=== PATIENT | female | born 1945 | race Caucasian/White ===

== ENCOUNTER → 2019-06-16 | Outpatient (CLI) | payer OTHER ==
[~2019-06-16] VITALS: Ht 157.5 cm; Wt 89.6 kg
[~2019-06-16] MED LIST: CARVEDILOL12.5 MG PO; CENTRUM TABLET1 TAB OR; CITRULLINE PO; CLONAZEPAM 1 MG1 M1 OR; COZAAR 25 MG TA25 M1 PO; FISHOIL OR; FLEXERIL PO; IBUPROFEN 200200 M1 PO; L-ARGININE1000 MG OR; LEXAPRO 10 MG T10 MG OR; LEXAPRO20 MG PO; LIPITOR 20 MG T20 M1 PO; LORTAB PO; NORCO 5-325 TA1 EACH PO; PHAZYME250 MG PO; PROAIR HFA8.5 GM INH; TRAMADOL 50 MG50 MG PO; TRELEGY ELLIPT1 EACH SPRAY; XANAX 0.25 MG0.25 MG PO; ZOLOFT50 M1 PO; [UNRECOGNIZED DRUG - OTHER] OR
[2019-06-16 13:23] VITALS: BP 220/93
--- NOTE | 2019-06-16 13:35 | NUR ---
Pain Clinic Assessment: 1. History of Osteoarthritis: BACK HANDS KNEES History of Rheumatoid Arthritis: Not Applicable 2. Height: 5 ft. 2 in. 157.5 cm. Weight: 197.6 lb. oz. 89.631 kg. Patient's BMI: 36.1 3. Vital Signs: BP: 220/93 Pulse: 77 Resp: 22 Temp: 02 Sat: 96 ECG Mon: 4. Pain Intensity: 7 5. Fall Risk: Dizziness: Y Needs help standing or walking: Y Fallen in the last 3 months: Y Fall risk comments: 6. Patient on Blood Thinner: None 7. History of Hypertension: Y 8. Opioid Therapy greater than 6 weeks: N Opiate Contract Signed: 9. Risk Assessment Tool Provided: LOW RISK 04/23 10. Functional Assessment Tool: 11. Recreational Drug Use: Never Drug Type: Tobacco Use: Never Smoker Tobacco Type: Amount or Packs/day: How Many Years: Alcohol Use: Yes Frequency: Weekly Quant: 1
--- NOTE | 2019-06-22 08:27 | HPC ---
[facility] [employer] [place] [address] PAIN MANAGEMENT CONSULTATION Name: JOANNA KOROMA Room #: REG DWAYNE Luna#: [id number] Admission: 06/16/19 Attend Phys: Meño Ward DO Discharge: Date of : 45 Report #: [id number] THIS REPORT FOR: cc: Meño Frey MD, James E. MD Johnson, James E. DO ~ DATE OF SERVICE: 06/16/2019 CHIEF COMPLAINT: Lumbar radiculopathy with neurogenic claudication. HISTORY OF PRESENT ILLNESS: As you know, the patient is a 74-year-old female who was seen in our clinic at [facility] on 06/10/2019 for suspected lumbar radiculopathy secondary to progressively worsening spinal stenosis. The patient was advised to trial conservative treatment options initially prior to considering surgical options. 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 She was made an appointment in our clinic at [facility] to undergo a lumbar epidural injection under fluoroscopic guidance. As you are aware, the patient has signs and symptoms of L5-S1 radiculopathy due to the findings of her MRI. This was confirmed by her neurosurgeon, Dr. Yusef Puri and by myself at our visit of 06/10/2019. She has returned to our clinic here at [facility] to undergo first in a series of lumbar epidural injections. PAST MEDICAL HISTORY: 1. Lumbar stenosis. 2. Kyphosis. 3. Degenerative disk disease. 4. Hodgkin's lymphoma. 5. Polyarthritis. 6. Gastric ulcer disease. 7. Irritable bowel syndrome. 8. Hypertension. PAST SURGICAL HISTORY: History of laminectomy. SOCIAL HISTORY: The patient is a reformed smoker. She denies IV or illicit drug use. Denies any chronic alcohol use. She is accompanied by her daughter, who presents in room today. IMAGING: MRI lumbar spine on 03/06/2019 shows changes throughout the lumbar region, most significant at L3-L4, L4-L5 and L5-S1. See the MRI report for further information. [facility] [address] [place] [address] PAIN MANAGEMENT CONSULTATION Name: JOANNA KOROMA Room #: REG [facility].#: [id number] Admission: 06/16/19 Attend Phys: Meño Ward DO Discharge: Date of : 45 Report #: [id number] ALLERGIES: ____,FLAGYL, CIPROFLOXACIN, MONTELUKAST SODIUM, METRONIDAZOLE, AZITHROMYCIN, AND LATEX. CURRENT MEDICATIONS: Sertraline 50 mg once a day, fluticasone 1 spray each nostril per day, tramadol 50 mg every 6 hours p.r.n., simethicone 250 mg 4 times a day, losartan 25 mg per day, cyclobenzaprine 10 mg 3 times a day, carvedilol 12.5 mg twice a day, atorvastatin 20 mg once a day, albuterol 2 puffs q. 4 hours p.r.n. PQRS: The patient has known arthritic changes of the lumbar spine, bilateral hips and knees as well as hands. No rheumatoid arthritis. She is placing pain intensity today at 7/10. She is a fall risk and has had multiple falls in the last 3 months. She is using a cane for ambulation. She is not on blood thinners, but is treated for hypertension. She is not on chronic opioids and has a low opioid addiction potential based on our assessment tool. Pain impact score is 60/70 indicating severe near complete interference of daily activities secondary to pain. PHYSICAL EXAMINATION: VITAL SIGNS: Blood pressure 220/93, pulse is 77, respiratory rate 20 and unlabored. The patient is 96% on room air. Height 5 feet 2 inches tall, weight 197.6 pounds, BMI calculated 36.1. GENERAL: Well-developed, well-nourished, well-hydrated exogenously obese 74-year-old female appearing her stated age. She is placing current pain score today at 7/10. HEENT: Normocephalic, atraumatic. Pupils equal, round, reactive to light. Extraocular muscles are intact. Sclerae nonicteric without injection. NEUROLOGIC: Cranial nerves 2 through 12 grossly intact. Speech fluent. EXTREMITIES: Show no clubbing, no cyanosis, and no edema. MUSCULOSKELETAL: Lower extremity strength equal and symmetrical 5/5, intact to light touch from L1 through S2 dermatomes. Seated straight leg raising negative. Supine straight leg raising positive at approximately 60 degrees. Ankle clonus negative. Babinski is negative. Gait is antalgic. ASSESSMENT: 1. Symptomatic lumbar radiculopathy. 2. Severe spinal stenosis of lumbar spine. 3. Displacement of lumbar intervertebral disk with radiculopathy. 4. Lumbosacral spondylosis with radiculopathy. 5. Lumbar degeneration. 6. Chronic intractable pain. 7. Essential hypertension. PLAN: 1. The patient returns today in followup visit to our clinic at [address] [address] PAIN MANAGEMENT CONSULTATION Name: JOANNA KOROMA Room #: REG DWAYNE Luna#: [id number] Admission: 06/16/19 Attend Phys: Meño Ward DO Discharge: Date of : 45 Report #: [id number] [place] to undergo a lumbar epidural injection under fluoroscopic guidance. We have changed the patient's treatment center to our [place] office due to the inability of the patient to be seen at our clinics at [facility] as we only there on Mondays and and the patient's milk pickup driver can only be available on Wednesdays. She has made an appointment here today to undergo a lumbar epidural injection under fluoroscopic guidance. We have achieved the authorization for the patient to undergo the procedure today. She has been advised of the risks and the benefits of this procedure. These risks include but are not necessarily limited to bleeding, bruising, infection, worsening pain, no relief of pain, also risk of temporary or permanent muscle weakness, temporary or permanent nerve damage, possible paralysis, post-dural puncture headache and . The patient states understood and wished to proceed. 2. No medication changes made at today's visit. The patient will continue current medical therapy as prior prescribed. 3. The patient's blood pressure is noted to be quite elevated today at 220/97. Her blood pressure at her last visit was 154/72. The patient will need to monitor her blood pressure carefully and discuss it further with her PCP. The patient indicates no vision changes, no headaches, and no concerning end-organ damage based on her reports. She will need to follow up with her PCP as quickly as possible to address her uncontrolled hypertension. 4. We will see the patient back in followup visit in approximately one month. At that time, review the efficacy of the epidural injection provided today. DESCRIPTION OF PROCEDURE: L5-S1 interlaminar epidural steroid injection under fluoroscopic guidance. This is the first procedure of the first series that the patient is undergoing. After obtaining written consent, the patient was taken back to the fluoroscopy suite, placed in a prone position with pillow under the abdomen to decrease lumbar lordosis. The skin overlying the lumbosacral area was then prepped and draped in aseptic fashion. The L5-S1 vertebral interspace was then identified by AP fluoroscopy. The skin and subcutaneous tissue overlying the target site of injection was anesthetized with 3 mL 1% lidocaine. A 20-gauge 3-1/2 inch Tuohy needle was then advanced under fluoroscopic guidance towards the epidural space using a parasagittal approach. The epidural space was identified using loss of resistance to air technique. After negative aspiration for heme or cerebrospinal fluid, a total of 1 mL of Omnipaque was injected. A lumbar epidurogram was confirmed using both AP and lateral fluoroscopy. After negative aspiration for heme or cerebrospinal fluid, 5 mL of a solution containing 2 mL 40 mg per mL, 80 mg total triamcinolone along with 3 mL of lidocaine 1% was injected in increments. Contrast spread was noted posterior epidural space. The needle was then retracted approximately half way and needle tract flushed with 1 mL of 1% lidocaine. Needle was then removed. [address] [address] PAIN MANAGEMENT CONSULTATION Name: JOANNA KOROMA Room #: REG DWAYNE Luna#: [id number] Admission: 06/16/19 Attend Phys: Meño Ward DO Discharge: Date of : 45 Report #: [id number] There were no apparent sensory or motor deficits in the lower extremity following the procedure. A sterile bandage was placed over the injection site. The heart rate, pulse, oximetry and blood pressure were continuously monitored after the procedure. There were no apparent complications. The patient tolerated the procedure well and was carefully escorted to the recovery room in stable condition. There were no apparent complications. After meeting discharge criteria, the patient was then discharged home. <ELECTRONICALLY SIGNED> By: Meño Ward DO 06/22/19 [id number] Meño Ward DO /nt
== END | disposition home or self-care (01) ==
LOC: PAIN 06:50
DX: M51.16 Intervertebral disc disorders with radiculopathy, lumbar region (principal); M48.061 Spinal stenosis, lumbar region without neurogenic claudication; M47.27 Other spondylosis with radiculopathy, lumbosacral region; G89.29 Other chronic pain; I10 Essential (primary) hypertension; M19.90 Unspecified osteoarthritis, unspecified site; Z88.8 Allergy status to other drugs, medicaments and biological substances; Z87.19 Personal history of other diseases of the digestive system; Z98.890 Other specified postprocedural states; Z79.899 Other long term (current) drug therapy